=== PATIENT | female | born 1995 | race Two or more races ===

== ENCOUNTER 2017-12-21 07:33 | Day surgery (SDC) | payer OTHER ==
[~2017-12-21] VITALS: Ht 152.4 cm; Wt 51.6 kg
[~2017-12-21 07:33] MED LIST: IBUP200C8 PO; NONE PER PT
[2017-12-21] MEDS ORDERED: LACTATED RINGERS 1,000 ML IV SCH (07:48)
[2017-12-21] MEDS ORDERED: BUPIVACAINE/PF 0.5% ONE (07:50)
[2017-12-21] MEDS ORDERED: EPINEPHRINE 1 MG/ML, 1ML ONE (07:50)
[2017-12-21] MEDS ORDERED: MIDAZOLAM 1 MG/ML, 2ML ONE (07:52)
[2017-12-21] MEDS ORDERED: FENTANYL PF 250 MCG/5ML ONE (07:52)
[2017-12-21 07:57] VITALS: BP 129/78
[2017-12-21 08:15] LABS: HCG UR SG 1.021 (1.003-1.030)
[2017-12-21] MEDS ORDERED: ONDANSETRON 2MG/ML, 2ML ONE ×2 (08:23→10:05)
[2017-12-21] MEDS ORDERED: DEXAMETHASONE 4 MG/ML, 5ML ONE (08:23)
[2017-12-21] MEDS ORDERED: CEFAZOLIN 1,000 MG ONE (08:23)
[2017-12-21] MEDS ORDERED: PROPOFOL 10 MG/ML, 20ML ONE (08:23)
[2017-12-21] MEDS ORDERED: ACETAMINOPHEN 650 MG/20.3 ML UDC ONE (09:15)
[2017-12-21] MEDS ORDERED: FENTANYL PF 100 MCG/2ML ONE ×2 (09:16→09:51)
[2017-12-21] MEDS ORDERED: OXYcodone 5 MG/5 ML ORAL.SOL UDC ONE ×2 (09:16→09:52)
[2017-12-21] MEDS ORDERED: KETOROLAC 30 MG/1 ML ONE (09:16)
[2017-12-21] MEDS: FENTANYL PF 100 MCG/2ML IV PRN ×3 (09:30→09:54)
[2017-12-21] MEDS: OXYcodone 5 MG/5 ML ORAL.SOL UDC PO PRN ×2 (09:35→09:52)
[2017-12-21] MEDS ORDERED: LORazepam 2 MG/ML, 1ML ONE (09:40)
[2017-12-21] MEDS ORDERED: ONDANSETRON 2MG/ML, 2ML IVPush PRN (10:00)
[2017-12-21] MEDS ORDERED: ACETAMINOPHEN 325 MG TABLET PO PRN (10:00)
[2017-12-21] MEDS ORDERED: PROMETHAZINE 25 MG/ML, 1ML IV PRN (10:00)
[2017-12-21] MEDS ORDERED: HYDROcodone/APAP 7.5-325MG/15ML UDC PO PRN (10:00)
[2017-12-21] MEDS ORDERED: KETOROLAC 30 MG/1 ML IV PRN (10:00)
[2017-12-21] MEDS ORDERED: morphine SULFATE 10 MG/ML, 1ML IV PRN (10:00)
[2017-12-21] MEDS ORDERED: LORazepam 2 MG/ML, 1ML IVPush PRN (10:00)
[2017-12-21] MEDS ORDERED: MEPERIDINE/PF 25MG/0.5ML IVPush PRN (10:00)
== END 2017-12-21 12:40 ==
LOC: OUT 07:33
PROVIDERS: ATTEND Colon & Rectal Surgery
DX: K42.9 Umbilical hernia without obstruction or gangrene (principal); Z79.899 Other long term (current) drug therapy; Z98.890 Other specified postprocedural states
CPT/HCPCS: 49585; 81025; C1781; J0171; J0690; J1100; J1885; J2060; J2250; J2405; J2704; J3010; J3490; J7120

== ENCOUNTER 2018-03-05 18:21 | Emergency (ER) | payer OTHER ==
[~2018-03-05] VITALS: Ht 152.4 cm; Wt 51.9 kg
[2018-03-05 18:25] VITALS: BP 114/81
[2018-03-05] MEDS ORDERED: LEVO5TAB29 PO (19:43)
[2018-03-05] MEDS ORDERED: MONT10TA9 PO (19:44)
== END 2018-03-05 19:53 | disposition home or self-care (01) ==
LOC: ED 19:47
DX: R10.33 Periumbilical pain (principal); Z98.890 Other specified postprocedural states
CPT/HCPCS: 99282

== ENCOUNTER → 2018-07-03 | Outpatient (CLI) | payer OTHER ==
[~2018-07-03] MED LIST changes: +LEVO5TAB29 PO; +MONT10TA9 PO
== END | disposition home or self-care (01) ==
LOC: CFH 10:01
PROVIDERS: ATTEND Internal Medicine Cardiovascular Disease
DX: R00.2 Palpitations (principal)
CPT/HCPCS: 93306

== ENCOUNTER 2018-10-11 13:02 | Emergency (ER) | payer OTHER ==
[~2018-10-11] VITALS: Ht 152.4 cm; Wt 48.6 kg
[2018-10-11] MEDS ORDERED: MORPHINE SULFATE 4 MG/ML, 1ML ONE (13:53)
[2018-10-11] MEDS ORDERED: ONDANSETRON 2MG/ML, 2ML ONE (13:53)
[2018-10-11] MEDS ORDERED: SODIUM CHLORIDE FLUSH 10ML SYR IVF ONE (14:00)
[2018-10-11] MEDS ORDERED: MORPHINE SULFATE 4 MG/ML, 1ML IVPush PRN (14:00)
[2018-10-11] MEDS ORDERED: ONDANSETRON 2MG/ML, 2ML IVPush ONE (14:00)
[2018-10-11 15:10] VITALS: BP 96/59
== END 2018-10-11 16:26 | disposition home or self-care (01) ==
LOC: ED 13:46
DX: S40.011A Contusion of right shoulder, initial encounter (principal); S09.8XXA Other specified injuries of head, initial encounter; R51 Headache; W19.XXXA Unspecified fall, initial encounter; Y93.89 Activity, other specified; Y92.828 Other wilderness area as the place of occurrence of the external cause; Y99.8 Other external cause status
CPT/HCPCS: 70450; 72110; 72190; 73000; 73030; 96374; 96375; 99284; J2405